=== PATIENT | male | born 2000 | race Caucasian/White ===

== ENCOUNTER 2024-08-23 17:58 | Emergency (ER) | payer SELFPAY ==
[~2024-08-23] VITALS: Ht 167.6 cm; Wt 65.0 kg
[2024-08-23 18:08] VITALS: O2SAT 96
[2024-08-23] MEDS ORDERED: ACET-2708 MT (18:46)
[2024-08-23] MEDS ORDERED: CEPH500C2 MT (18:46)
[2024-08-23 18:54] VITALS: BP 119/66; PULSE 77; RESP 15; TEMP 36.8; O2SAT 96
== END 2024-08-23 18:53 | disposition home or self-care (01) ==
LOC: ER 17:58
DX: L02.31 Cutaneous abscess of buttock (principal); L02.01 Cutaneous abscess of face
CPT/HCPCS: 99283